=== PATIENT | female | born 1995 | race African-American/Black ===

== ENCOUNTER 2022-10-19 17:47 | Emergency (ER) | payer OTHER, SELFPAY ==
[2022-10-19 18:05] VITALS: BP 115/72; PULSE 82; RESP 15; TEMP 36.8; O2SAT 98
--- NOTE | 2022-10-19 20:27 | W.ED.ABDPA2 ---
HPI - Abdominal Pain General: Chief Complaint: Abdominal Pain Stated Complaint: urg care sent, right side abd pain Time Seen by Provider: 10/19/22 20:27 History of Present Illness: 27-year-old female comes in today with complaints of right lower quadrant abdominal pain. Patient reports some chills along with nausea but no vomiting and right lower quadrant pain since Monday. Patient appears nontoxic. Patient reports that last menstrual cycle was about 1 month ago. Patient denies . Patient reports no prior abdominal surgeries. Patient reports no chronic medical problems or routine medications [id number] or prescription based. Associated Symptoms: Reports chills and nausea; Denies constipation, diarrhea, fever(s) and vomiting Review of Systems General: Reports: 10 or more systems reviewed and unremarkable except in HPI and below Const: Reports: chills; Denies: fever(s) Card: Denies: chest pain Resp: Denies: dyspnea GI: Reports: abdominal pain and nausea; Denies: vomiting, diarrhea or constipation : Denies: difficulty voiding Musc: Denies: neck pain or back pain Skin/Breast: Denies: rash Neuro: Denies: headache(s) Physical Exam Const: COMMON NORMALS: alert HENMT: COMMON NORMALS: normocephalic and atraumatic HEAD & SCALP: normocephalic and atraumatic Neck/C-Spine: COMMON NORMALS: full ROM Resp: COMMON NORMALS: normal respiratory effort and clear to auscultation bilaterally AUSCULTATION: clear to auscultation bilaterally Cardio: COMMON NORMALS: regular rate and regular rhythm RATE: regular rate RHYTHM: regular rhythm GI: COMMON NORMALS: Soft to palpation AUSCULTATION: Yes normoactive bowel sounds PALPATION: Yes Soft to palpation and Yes Tenderness to palpation present (GI) Details: RLQ : COMMON NORMALS: Yes no CVA tenderness BLADDER/KIDNEY EXAM: Yes no CVA tenderness Back/Pelvis: COMMON NORMALS: no CVA tenderness and thoracic and lumbar spine normal to inspection Extremity: COMMON NORMALS: normal to inspection Neuro: SENSORIUM/ORIENTATION: Yes alert Skin: COMMON NORMALS: turgor normal GENERAL SKIN EXAM: turgor normal Course Vital Signs: Vital signs: Vital Signs Temperature 98.3 F 10/19/22 18:05 Pulse Rate 75 10/19/22 21:19 Respiratory Rate 18 10/19/22 21:19 Blood Pressure 115/72 08/23/23 18:05 Pulse Oximetry 100 10/19/22 21:19 Oxygen Delivery Me thod Room Air 10/19/22 21:19 MDM - Abdominal Pain Medical Decision Making 27-year-old female comes in today for complaints of right lower quadrant abdominal pain. Patient was seen at urgent care and referred to the ER for further evaluation to rule out appendicitis. On exam patient's abdomen soft with some tenderness in the right mid to lower abdomen. Bowel sounds are present. Vital signs are normal. Differential diagnosis includes but not limited to renal calculi, appendicitis, gallbladder disease, constipation, gastroenteritis. CBC was notable for hemoglobin of 8.2 and hematocrit of 30. CMP was unremarkable. Urinalysis had nitrates and large amount of white blood cells. CT of the abdomen and pelvis noted no appendicitis but did note urinary bladder wall thickening and mild thickening of the right renal collection system suggesting possible cystitis and urinary tract infection. Patient was given 1 g of ceftriaxone for treatment of cystitis. Patient will continue on cephalexin 500 mg twice daily for 7 more days. Patient reported understanding of care plan and need for follow-up or return to the ER. Lab Data 10/19/22 20:15 10/19/22 20:15 Labs/Radiology: Radiology Impressions Abdomen/Pelvis CT 10/19/22 20:33 IMPRESSION: 1. Mild wall thickening of the urinary bladder, suspicious for cystitis. Clinical correlation recommended. 2. Subtle urothelial thickening in the right renal collecting system could indicate infection. 3. Mild pelvic ascites. Laboratory Results WBC 8.15 10^3/uL (3.29-11.43) 10/19/22 20:15 RBC 4.38 10^6/uL (3.85-5.65) 10/19/22 20:15 Hgb 8.20 g/dL (11.27-16.99) L 10/19/22 20:15 Hct 30.2 % (36-47) L 10/19/22 20:15 MCV 68.9 fl (85-98) L 10/19/22 20:15 MCH 18.7 pg (27-33) L 10/19/22 20:15 MCHC 27.2 g/dL (30-55) L 10/19/22 20:15 RDW 21.2 % (12.1-15.1) H 10/19/22 20:15 Plt Count 222 10^3/cmm (157-399) 10/19/22 20:15 MPV 11.1 fL (7.4-10.4) H 10/19/22 20:15 Neut % (Auto) 65.6 % 10/19/22 20:15 Lymph % (Auto) 23.9 % 10/19/22 20:15 Curry % (Auto) 9.2 % 10/19/22 20:15 Eos % (Auto) 0.6 % 10/19/22 20:15 Baso % (Auto) 0.5 % 10/19/22 20:15 Neut # (Auto) 5.34 10^3/uL (1.8-7.7) 10/19/22 20:15 Lymph # (Auto) 2.0 10^3/uL (0.8-4.8) 10/19/22 20:15 Curry # (Auto) 0.8 10^3/uL (0.2-0.9) 10/19/22 20:15 Eos # (Auto) 0.1 10^3/uL (0.0-0.8) 10/19/22 20:15 Baso # (Auto) 0.0 10^3/uL (0.0-0.1) 10/19/22 20:15 Nucleated RBC % (auto) 0 % 10/19/22 20:15 Nucleated RBCs # 0.0 /100WBC 10/19/22 20:15 Sodium 139 mmol/L (136-145) 10/19/22 20:15 Potassium 3.7 mmol/L (3.5-5.1) 10/19/22 20:15 Chloride 103 mmol/L (98-107) 10/19/22 20:15 Carbon Dioxide 24 mmol/L (22-29) 10/19/22 20:15 Anion Gap 15.7 (5-19) 10/19/22 20:15 BUN 9 mg/dL (6-20) 10/19/22 20:15 Creatinine 0.8 mg/dL (0.5-0.9) 10/19/22 20:15 GFR Calculation 104.9 mL/min (90-130) 10/19/22 20:15 Glucose 83 mg/dL (65-115) 10/19/22 20:15 Calculated Osmolality 286 mOsm/kg (285-295) 10/19/22 20:15 Calcium 9.6 mg/dL (8.5-10.5) 10/19/22 20:15 Total Bilirubin 0.9 mg/dL (0.15-1.2) 10/19/22 20:15 AST 23 U/L (0-32) 10/19/22 20:15 ALT 9 U/L (0-33) 10/19/22 20:15 Alkaline Phosphatase 82 U/L (35-105) 10/19/22 20:15 Total Protein 8.7 g/dL (6.6-8.7) 10/19/22 20:15 Albumin 4.8 g/dL (3.5-5.2) 10/19/22 20:15 Globulin 3.9 g/dL (1.3-4.6) 10/19/22 20:15 Lipase 16 U/L (13-60) 10/19/22 20:15 HCG, Qual Negative (Negative) 10/19/22 20:15 Urine Color Yellow (Yellow) 10/19/22 21:01 Urine Appearance Hazy (CLEAR) A 10/19/22 21:01 Urine pH 6 (5-7) 10/19/22 21:01 Ur Specific [place] 1.015 (1.005-1.030) 10/19/22 21:01 Urine Protein Neg (Negative) 10/19/22 21:01 Urine Glucose (UA) Norm (Normal) 10/19/22 21:01 Urine Ketones 1+ (Negative) H 10/19/22 21:01 Urine Blood Neg (Negative) 10/19/22 21:01 Urine Nitrate Positive (Negative) H 10/19/22 21:01 Urine Bilirubin Neg (Negative) 10/19/22 21:01 Urine Urobilinogen Neg mg/dL (Negative) 10/19/22 21:01 Ur Leukocyte Esterase 2+ (Negative) H 10/19/22 21:01 Urine RBC 0-4 /hpf (0-2) H 10/19/22 21:01 Urine WBC 25-40 /hpf (0-5) H 10/19/22 21:01 Ur Squamous Epith Cells 5-10 /hpf (0-5) H 10/19/22 21:01 Amorphous Sediment Not Reportable 10/19/22 21:01 Urine Bacteria 3+ /hpf (NONE) H 10/19/22 21:01 Discharge Plan Discharge Patient Disposition: Home Clinical Impression: Cystitis Condition: Stable Prescriptions: New cephalexin 500 mg capsule 500 mg PO BID 7 Days Qty: 14 0RF Discharge Orders: Discharge ED (Routine); Ordered 10/19/22 Ordered By: Jhon Barger Referrals: John Salcedo [Primary Care Provider] - Discharge Diet: Usual diet Discharge Activity: Increase activity as tolerated Patient Instructions: Urinary Tract Infection in Women (ED) Activity Restrictions/Additional Instructions: Drink plenty of water and fluids. Take antibiotics as directed for the next 7 days. Follow-up with primary care in 1 week for recheck. Return to ER for worsening symptoms such as inability to hold fluids down, blood in vomit or stool, fever greater than 100.4, or new concerns. Coding Level of Care Code ED [employer]
--- NOTE | 2022-10-19 20:33 | CTR_ITS ---
PROCEDURE INFORMATION: Exam: CT Abdomen And Pelvis With Contrast Exam date and time: 10/19/2022 9:57 PM Age: 27 years old Clinical indication: Abdominal pain; Localized; Right lower quadrant (rlq); Additional info: Rlq abd pain TECHNIQUE: Imaging protocol: Computed tomography of the abdomen and pelvis with contrast. Radiation optimization: All CT scans at this facility use at least one of these dose optimization techniques: automated exposure control; mA and/or kV adjustment per patient size (includes targeted exams where dose is matched to clinical indication); or iterative reconstruction. Contrast material: OMNI 350; Contrast volume: 100 ml; Contrast route: INTRAVENOUS (IV); REPORTING DATA: Count of CT and Cardiac NM exams in prior 12 months: This patient has received 0 known CTs and 0 known cardiac nuclear medicine studies in the 12 months prior to the current study. COMPARISON: No relevant prior studies available. RADIATION DOSE METRICS: Total DLP (mGy-cm): 505.45 FINDINGS: Liver: Normal. No mass. Gallbladder and bile ducts: Normal. No calcified stones. No ductal dilation. Pancreas: Normal. No ductal dilation. Spleen: Normal. No splenomegaly. Adrenal glands: Normal. No mass. Kidneys and ureters: Subtle urothelial thickening in the right renal collecting system. No hydronephrosis. No calculus. Stomach and bowel: The stomach, small bowel, and colon are unremarkable. No wall thickening. No obstruction. Appendix: The appendix is visualized and is normal. Intraperitoneal space: Mild pelvic ascites. No free peritoneal air. Vasculature: Unremarkable. No abdominal aortic aneurysm. Lymph nodes: Unremarkable. No enlarged lymph nodes. Urinary bladder: Mild urinary bladder wall thickening. Reproductive: The uterus and ovaries are unremarkable. Bones/joints: Unremarkable. No acute fracture. Soft tissues: Navel piercing. CT/CT abdomen pelvis w con* [id number] IMPRESSION: 1. Mild wall thickening of the urinary bladder, suspicious for cystitis. Clinical correlation recommended. 2. Subtle urothelial thickening in the right renal collecting system could indicate infection. 3. Mild pelvic ascites.
[2022-10-19 20:42] LABS: Basophils % 0.5 %; Eosinophils # 0.1 10^3/uL (0.0-0.8); Eosinophils % 0.6 %; Hematocrit 30.2 % (36-47); Lymphocytes % 23.9 %; Mean Corpuscular HGB Conc 27.2 g/dL (30-55); Mean Corpuscular Hemoglobin 18.7 pg (27-33); Mean Corpuscular Volume 68.9 fl (85-98); Monocytes # 0.8 10^3/uL (0.2-0.9); Monocytes % 9.2 %; Neutrophils # 5.34 10^3/uL (1.8-7.7); Neutrophils % 65.6 %; Nucleated Red Blood Cells % 0 %; Platelet Count 222 10^3/cmm (157-399); Red Blood Count 4.38 10^6/uL (3.85-5.65); Red Cell Distribution Width 21.2 % (12.1-15.1); White Blood Count 8.15 10^3/uL (3.29-11.43)
[2022-10-19 20:57] LABS: HCG, Serum Qual Negative (Negative)
[2022-10-19 21:11] LABS: Alanine Aminotransferase 9 U/L (0-33); Albumin Level 4.8 g/dL (3.5-5.2); Alkaline Phosphatase 82 U/L (35-105); Anion Gap 15.7 (5-19); Aspartate Amino Transferase 23 U/L (0-32); Blood Urea Nitrogen 9 mg/dL (6-20); Calcium 9.6 mg/dL (8.5-10.5); Carbon Dioxide 24 mmol/L (22-29); Chloride 103 mmol/L (98-107); Globulin 3.9 g/dL (1.3-4.6); Glomerular Filtration Rate 104.9 mL/min (90-130); Glucose 83 mg/dL (65-115); Lipase 16 U/L (13-60); Osmolality Calculated 286 mOsm/kg (285-295); Potassium 3.7 mmol/L (3.5-5.1); Sodium 139 mmol/L (136-145); Total Bilirubin 0.9 mg/dL (0.15-1.2); Total Protein 8.7 g/dL (6.6-8.7)
[2022-10-19 21:16] LABS: Slide Review Slide Review Perform
[2022-10-19 21:17] LABS: Mean Platelet Volume 11.1 fL (7.4-10.4)
[2022-10-19 21:19] VITALS: PULSE 75; RESP 18; O2SAT 100
[2022-10-19 21:35] LABS: Urine Appearance Hazy (CLEAR); Urine Color Yellow (Yellow)
[2022-10-19 21:36] LABS: Add Urine Microscopic? YES; Bilirubin Urine Neg (Negative); Blood Urine Neg (Negative); Glucose Urine UA Norm (Normal); Ketones Urine 1+ (Negative); Leukocyte Esterase Urine 2+ (Negative); Nitrate Urine Positive (Negative); Protein Urine Neg (Negative); Specific Gravity, Urine 1.015 (1.005-1.030); Urobilinogen Urine Neg (Negative); pH Urine 6 (5-7)
[2022-10-19 21:37] LABS: Add Urine Culture? Yes; Bacteria Urine 3+ /hpf; RBC Urine 0-4 /hpf (0-2); WBC Urine 25-40 /hpf (0-5)
[2022-10-19] MEDS: iohexol 350 mg/mL 500 mL Btl (per mL) IV (22:00)
== END 2022-10-20 00:05 | disposition home or self-care (01) ==
PROVIDERS: Emergency Provider Nurse Practitioner Family; PCP Family Medicine
DX: N30.90 Cystitis, unspecified without hematuria (principal)
CPT/HCPCS: 36415; 74177; 80053; 81001; 83690; 84703; 85025; 87077; 87086; 87186; 99285; Q9967

== ENCOUNTER → 2024-05-13 14:16 | Outpatient (BNVA) | payer SELFPAY | PROVIDERS: PCP Family Medicine | DX: R39.9 Unspecified symptoms and signs involving the genitourinary system (principal) | CPT/HCPCS: 81000 ==

== ENCOUNTER → 2024-11-25 11:11 | Outpatient (BNVA) | payer SELFPAY | PROVIDERS: PCP Registered Nurse; Visit Provider Registered Nurse | DX: Z34.90 Encounter for supervision of normal pregnancy, unspecified, unspecified trimester (principal); Z3A.01 Less than 8 weeks gestation of pregnancy | CPT/HCPCS: 81025 ==